=== PATIENT | female | born 2000 | race Caucasian/White ===

== ENCOUNTER 2019-04-01 09:12 | Emergency (ER) | payer OTHER ==
[2019-04-01 10:17] VITALS: BP 126/75
[2019-04-01 10:56] LABS: Influenza A Molecular Negative (Negative); Influenza B Molecular Negative (Negative)
--- NOTE | 2019-04-01 10:59 | UC ---
Respiratory Complaint HPI - HPI Summary HPI Summary: 18 year old female presents with complaint of sinus congestion, pressure and ear pain over the past week which has progressively worsened. Over the past four days she notes fever with chills, chest congestion, productive cough, sore throat, right ear pain and runny nose and eyes. She does have a history of previous sinus infections. Tried over the counter medications without improvement of symptoms. Notes nausea, no vomiting. - History of Current Complaint Chief Complaint: UCRespiratory Stated Complaint: CONGESTION,FEVER Time Seen by Provider: 04/01/19 10:38 Hx Last Menstrual Period: Does not have reg periods, uses depo Onset/Duration: Gradual Onset - over the past week Pain Intensity: 2 - Allergies/Home Medications Allergies/Adverse Reactions: Allergies Allergy/AdvReac Type Severity Reaction Status Date / Time latex Allergy Unknown swelling , Verified 04/01/19 10:06 hives Home Medications: Home Medications D-Methorphan/PE/Acetaminophen [Vicks Dayquil Liquicaps] 1 cap PO PRN 04/01/19 [ History] QUEtiapine TAB* [Seroquel 25 MG TAB*] 50 mg PO BEDTIME 04/01/19 [History Confirmed 04/01/19] medroxyPROGESTERone ACETATE* [DEPO-Provera*] 150 mg IM 04/01/19 [History] PMH/Surg Hx/FS Hx/Imm Hx Previously Healthy: Yes Respiratory History: Other - h/o sinusitis - Surgical History Surgical History: Yes Surgery Procedure, Year, and Place: right hand fx repair - Social History Alcohol Use: Occasionally Substance Use Type: None Smoking Status (MU): Current Some Day Smoker Type: Cigarettes Review of Systems All Other Systems Reviewed And Are Negative: Yes Constitutional: Positive: Negative Skin: Positive: Negative Eyes: Positive: Negative ENT: Positive: Sore Throat, Ear Ache, Nasal Discharge, Sinus Congestion, Sinus Pain/Tenderness Respiratory: Positive: Cough. Negative: Shortness Of Breath Cardiovascular: Positive: Negative Gastrointestinal: Positive: Negative Genitourinary: Positive: Negative Neurovascular: Positive: Negative Musculoskeletal: Positive: Negative Neurological: Positive: Negative Psychological: Positive: Negative Is Patient Immunocompromised?: No Physical Exam Triage Information Reviewed: Yes Appearance: Well-Appearing Vital Signs: Initial Vital Signs Temp 98.3 F 04/01/19 10:08 Pulse 93 02/09/20 10:08 Resp 18 04/01/19 10:08 BP 126/75 04/01/19 10:08 Pulse Ox 99 04/01/19 10:08 Eye Exam: Normal ENT: Positive: Pharynx normal, Nasal congestion, TMs normal, Sinus tenderness - maxillary Neck: Positive: Supple, Nontender, No Lymphadenopathy Respiratory: Positive: Chest non-tender, Lungs clear, Normal breath sounds. Negative: Crackles, Rhonchi, Wheezing Cardiovascular: Positive: RRR, No Murmur Abdomen Description: Positive: Nontender, Soft Musculoskeletal Exam: Normal Neurological Exam: Normal Psychological Exam: Normal Skin Exam: Normal Respiratory Course/Dx - Differential Dx/Diagnosis Provider Diagnosis: Acute sinusitis Discharge ED - Sign-Out/Discharge Documenting (check all that apply): Patient Departure All imaging exams completed and their final reports reviewed: No Studies - Discharge Plan Condition: Stable Disposition: HOME Prescriptions: Amoxicillin/Clavulanate TAB* [Augmentin TAB 875*] 875 mg PO BID 10 Days #20 tab Patient Education Materials: Sinusitis (ED) Referrals: Josie Gomez DO [Primary Care Provider] - Additional Instructions: Take all the antibiotic as prescribe. You may also take ibuprofen as needed for pain/pressure. If your symptoms persist or worsen, follow-up with your Primary Care Physician. - Billing Disposition and Condition Condition: STABLE Disposition: Home
== END 2019-04-01 11:38 | disposition home or self-care (01) ==
LOC: UCCORT 09:12
DX: J01.90 Acute sinusitis, unspecified (principal); H92.09 Otalgia, unspecified ear; R09.81 Nasal congestion; F17.210 Nicotine dependence, cigarettes, uncomplicated; Z91.040 Latex allergy status
CPT/HCPCS: 99202; G0463